=== PATIENT | female | born 1970 | race Caucasian/White ===

== ENCOUNTER 2017-09-18 22:46 | Observation (INO) ==
[2017-09-18] MEDS ORDERED: methylPREDNISolone 125 MG/2 ML VIAL IVP ONE (22:53)
[2017-09-18] MEDS ORDERED: Famotidine 20 MG/2 ML VIAL IVP ONE (22:53)
[2017-09-18] MEDS ORDERED: *HR* EPINEPHrine 1 MG/ML AMPUL IM ONE (22:53)
[2017-09-18] MEDS ORDERED: methylPREDNISolone 125 MG/2 ML VIAL ONE (22:53)
[2017-09-18] MEDS ORDERED: *HR* EPINEPHrine 1 MG/ML AMPUL ONE (22:53)
[2017-09-18] MEDS ORDERED: 0.9 % Sodium Chloride 1,000 ML IVC ONE (22:54)
[2017-09-18] MEDS ORDERED: Albuterol 2.5 MG/3 ML NEBULIZER IH ONE (23:01)
--- NOTE | 2017-09-18 23:12 | Emergency Department Note ---
Disposition Clinical Impression: Anaphylactic shock Allergic reaction to penicillin Qualifiers: Encounter type: initial encounter Qualified Code(s): T36.0X5A - Adverse effect of penicillins, initial encounter Disposition: Admitted As Inpatient Condition: Fair Time of Disposition: 00:11 Allergic Reaction HPI - General Chief complaint: ED Allergic Reaction Stated complaint: Allergic reaction Time Seen by Provider: 09/18/17 22:48 Source: patient, family Mode of arrival: EMS Limitations: no limitations Nursing Notes Reviewed: Yes Vital Signs Reviewed: Yes - History of Present Illness HPI Narrative: 47-year-old female presents with facial swelling, with syncope. Patient states that she is having a red rash all over, she took amoxicillin a few hours prior to arrival, the patient states that she took some Benadryl was still feeling flushed and she passed out. She came in by EMS, concerned that she is of an allergic reaction to amoxicillin. She does have a history of amoxicillin take it one time and she had some hives. She has never had anaphylaxis before and never had epinephrine. EMS administered oxygen around her sats were 83 with 84% . At this time patient reports shortness breath and body rash, she feels like her throat is closing up. Pt Subjective Complaint: allergic reaction Onset (ago): hour(s) Exposure: medication (Amox) Severity: severe Treatment prior to arrival: benadryl Previous Allergic Reaction History: none - Related Data Home Medications Medication Instructions Recorded Confirmed No Known Home Drugs 09/19/17 09/19/17 Allergies Allergy/AdvReac Type Severity Reaction Status Date / Time Penicillins Allergy Anaphylaxis Verified 09/18/17 23:03 All systems ED: reviewed and negative except as stated. Review of Systems: As Per HPI Constitutional: Denies: fever, chills Eyes: Denies: eye pain ENT ED: Denies: ear pain, congestion Cardiovascular: Reports: palpitations Respiratory: Reports: as per HPI, cough, dyspnea, wheezes Gastrointestinal: Denies: abdominal pain, nausea, vomiting Genitourinary: Denies: urgency Musculoskeletal: Denies: back pain Integumentary: Denies: rash Neurological: Denies: headache, weakness Psychiatric: Denies: anxiety Past Medical History - Past Medical History Attestation: Yes The following information was validated with the patient. Source: patient Medical history: Reports: no medical history - Social History Smoking Status: Current every day smoker Smokeless Tobacco Status: No Alcohol use: Reports: none Drug use: Reports: none Physical Exam Constitutional: Hypotension tachycardic female in moderate respiratory distress Eyes: PERRLA, sclera anicteric ENT & Mouth: Lips swelling upper and lower. MM dry Neck: normal inspection, neck is supple Resp: CTA bilaterally, no resp distress CV: Tachycardic, no m/g/r GI: normal inspection, soft, no guarding or rigidity Neuro: A&O3, CNII-XII grossly intact, RENEE Skin: Diffuse macular rash on extremities torso and abdomen. - General Limitations: no limitations General appearance: alert, in distress Course Course Narrative: 39-year-old female with anaphylactic reaction to amoxicillin, given IV fluids Solu-Medrol, IM epinephrine, Pepcid, Benadryl, albuterol, patient did respond to epinephrine and her blood pressure came up from 60/40 90/70 that went to 115/ 90, she is currently stable, but sure presents a severe risk for decompensation with amoxacillin. First-time anaphylactic reaction, will admit the patient to the hospitalist service - Reevaluation(s) Reevaluation #1: Patient with stable repeat vital signs patient's now weaned onto room air, 94%, patient has stable repeat blood pressure is 1:15 to 126 systolic, patient is not a repeat dose of epinephrine, given anaphylaxis with a blood pressure in the 60s over 40s, and unclear half-life for amoxicillin, plan will be for admission for the patient, and further observation. Elton Rossi accepting Time: 00:14 Vital Signs Temperature 97.5 F L 09/18/17 22:49 Pulse Rate 113 09/18/17 22:49 Respiratory Rate 16 09/18/17 22:49 Blood Pressure 84/55 09/18/17 22:49 O2 Sat by Pulse Oximetry 84 09/18/17 22:49 Temperature 98.5 F 09/19/17 04:14 Pulse Rate 84 09/19/17 04:14 Respiratory Rate 17 09/19/17 04:14 Blood Pressure 111/69 09/19/17 04:14 O2 Sat by Pulse Oximetry 96 09/19/17 04:14 Oxygen Delivery Oxygen Delivery Room Air Allergic Reaction - Differential Diagnosis Differential Diagnosis: Likely: anaphylaxis, allergic reaction, angioedema, adverse reaction to drug, viral enanthem - Medical Records Medical records reviewed: Yes I reviewed the patient's medical records. - Lab Data Lab results reviewed: Yes I reviewed the patient's lab results. Result diagrams: 09/19/17 01:10 09/19/17 01:10 Lab Results 09/18/17 09/18/17 09/18/17 Range/Units 23:06 23:06 23:06 WBC 12.4 H (4.3-11.1) K/mcL RBC 6.11 H (3.82-4.97) M/mcL Hgb 18.7 H (11.5-15.4) g/dL Hct 55.0 H (35.3-44.9) % MCV 90.0 (83.0-100.0) fL MCH 30.6 (28.0-33.3) pg MCHC 34.0 (31.6-35.5) g/dL RDW 13.7 (11.5-14.5) % Plt Count 322 (140-400) K/mcL MPV 9.5 (9.4-12.4) fL Immature Gran % 0.4 (0-4) % Seg Neutrophils % 45.2 % Lymphocytes % 48.8 % Monocytes % 2.9 % Eosinophils % 2.2 % Basophils % 0.5 % Neutrophils # 5.6 (1.6-8.9) K/mcL Lymphocytes # 6.1 H (0.6-4.6) K/mcL Monocytes # 0.4 (0.0-1.3) K/mcL Eosinophils # 0.3 (0.0-0.6) K/mcL Basophils # 0.1 (0.0-0.2) K/mcL VBG pH (7.32-7.42) pH Units VBG pCO2 (41-51) mmHg VBG pO2 (25-50) mmHg VBG HCO3 (21-27) mEq/L Sodium 139 (136-145) mEq/L Potassium 2.9 L (3.5-5.1) mEq/L Chloride 107 (98-107) mEq/L Carbon Dioxide 20 L (23-29) mEq/L BUN 11 (6-20) mg/dL Creatinine 0.90 (0.60-1.20) mg/dL Est GFR ( Amer) > 60 (> 60) Est GFR (Non-Af Amer) > 60 (> 60) BUN/Creatinine Ratio 12 (6-26) Glucose 194 H (70-105) mg/dL Calculated Osmolality 293 (280-300) Lactic Acid 3.7 H (0.5-2.2) mmol/L Calcium 8.6 (8.6-10.3) mg/dL Troponin I < 0.03 (< 0.04) ng/mL B-Natriuretic Peptide (Less than 100) pg/mL 09/18/17 09/18/17 Range/Units 23:06 23:23 WBC (4.3-11.1) K/mcL RBC (3.82-4.97) M/mcL Hgb (11.5-15.4) g/dL Hct (35.3-44.9) % MCV (83.0-100.0) fL MCH (28.0-33.3) pg MCHC (31.6-35.5) g/dL RDW (11.5-14.5) % Plt Count (140-400) K/mcL MPV (9.4-12.4) fL Immature Gran % (0-4) % Seg Neutrophils % % Lymphocytes % % Monocytes % % Eosinophils % % Basophils % % Neutrophils # (1.6-8.9) K/mcL Lymphocytes # (0.6-4.6) K/mcL Monocytes # (0.0-1.3) K/mcL Eosinophils # (0.0-0.6) K/mcL Basophils # (0.0-0.2) K/mcL VBG pH 7.30 L (7.32-7.42) pH Units VBG pCO2 44 (41-51) mmHg VBG pO2 61 H (25-50) mmHg VBG HCO3 22 (21-27) mEq/L Sodium (136-145) mEq/L Potassium (3.5-5.1) mEq/L Chloride (98-107) mEq/L Carbon Dioxide (23-29) mEq/L BUN (6-20) mg/dL Creatinine (0.60-1.20) mg/dL Est GFR ( Amer) (> 60) Est GFR (Non-Af Amer) (> 60) BUN/Creatinine Ratio (6-26) Glucose (70-105) mg/dL Calculated Osmolality (280-300) Lactic Acid (0.5-2.2) mmol/L Calcium (8.6-10.3) mg/dL Troponin I (< 0.04) ng/mL B-Natriuretic Peptide 14 (Less than 100) pg/mL - Radiology Data Radiology results reviewed: Yes I reviewed the patient's radiology results. Chest X-Ray 09/18/17 22:54 IMPRESSION: No acute process. D/ / Justin Brewer MD / Justin Brewer MD Interpreting Provider: Justin Brewer MD - EKG Data EKG attestation: Yes I reviewed and interpreted this EKG. EKG shows normal: sinus rhythm (70 bpm TX 131 QRS [address] segment elevations or depressions. ) Rate: normal Rhythm: NSR [place]/QRS: normal - Core Measures AMI Core Measures Followed: No Measure Exclusions: not indicated Attestation Statement - Attestation Attestation: I examined this patient and my medical decision-making was reviewed with the Resident Physician. I agree with the documented findings, disposition and treatment plan as described except to the extent set forth below. Patient presents with anaphylactic shock after starting a new antibiotic. She required epinephrine on arrival. Her vital signs subsequently normalized however due to the degree of her shock I would proceed with admission for observation overnight and prescribed epinephrine auto injector for home use should she have recurrence of symptomatology or have further anaphylaxis at home. I spent greater than 35 minutes of critical care time resuscitating this acutely ill patient suffering from anaphylactic shock. This was excluding billable procedures.
[2017-09-18 23:28] LABS: VBG HCO3 22 mEq/L (21-27); VBG PCO2 44 mmHg (41-51); VBG PO2 61 mmHg (25-50)
[2017-09-18 23:41] LABS: Basophils # 0.1 K/mcL (0.0-0.2); Basophils % 0.5 %; Eosinophils # 0.3 K/mcL (0.0-0.6); Eosinophils % 2.2 %; Hemoglobin 18.7 g/dL (11.5-15.4); Immature Granulocytes % 0.4 % (0-4); Lymphocytes # 6.1 K/mcL (0.6-4.6); Lymphocytes % 48.8 %; Mean Corpuscular Hemoglobin 30.6 pg (28.0-33.3); Mean Platelet Volume 9.5 fL (9.4-12.4); Monocytes # 0.4 K/mcL (0.0-1.3); Monocytes % 2.9 %; Neutrophils # 5.6 K/mcL (1.6-8.9); Platelet Count 322 K/mcL (140-400); Red Blood Count 6.11 M/mcL (3.82-4.97); Red Cell Distribution Width 13.7 % (11.5-14.5); Segmented Neutrophils % 45.2 %
[2017-09-19 00:01] LABS: BUN/Creatinine Ratio 12 (6-26); Blood Urea Nitrogen 11 mg/dL (6-20); Calcium 8.6 mg/dL (8.6-10.3); Carbon Dioxide 20 mEq/L (23-29); Chloride 107 mEq/L (98-107); Glucose 194 mg/dL (70-105); Osmolality,Calculated 293 (280-300); Potassium 2.9 mEq/L (3.5-5.1); Sodium 139 mEq/L (136-145); eGFR For African Americans > 60 (> 60); eGFR For Non-African Americans > 60 (> 60)
[2017-09-19 00:03] LABS: Troponin I < 0.03 ng/mL (< 0.04)
[2017-09-19] MEDS ORDERED: Acetaminophen 325 MG TABLET PO PRN (00:27)
[2017-09-19] MEDS ORDERED: Naloxone 0.4 MG/ML INJ IVP PRN (00:27)
[2017-09-19] MEDS ORDERED: Potassium Chloride 40 MEQ, Lidocaine 1% 2 ML in D5% in Water 500 ML IVPB ONE (00:29)
[2017-09-19] MEDS ORDERED: 0.9 % Sodium Chloride 1,000 ML IVC SCH (00:30)
--- NOTE | 2017-09-19 00:33 | Internal Med History&Physical ---
Date of Encounter: 09/19/17 Time of Encounter: 00:30 Internal Medicine - H&P: HPI Chief complaint: Allergic reaction Admitted From: Emergency Dept Plans for Post Hospital Care: Home History of present illness: Ms. Mckay is a 47 year old female who has no past medical history who presented to the ED after an allergic reaction to penicillin 45 minutes after taking it. The patient tells me that she actually took penicillin all her life with no issues up until the last 2 times that she is taken penicillins where she had hives to went away with Benadryl. Been having URI symptoms for the last few days and took one of her sons amoxicillin and 45 minutes later she started having shortness of breath, facial and lip swelling, hives, diaphoresis , tachypnea, and near syncope. She took oral Benadryl but that did not resolve her symptoms. They called EMS however due to worsening of her symptoms her son caregiver brought her to the ED where she was found hypoxic with sats of 84%. She was also hypotensive with systolic blood pressure in the 80s. She is tachycardic. She was given IV Solu-Medrol, IV Benadryl, epinephrine, IV Pepcid , and IV fluids. Symptoms completely resolved after that. She was able to be weaned off oxygen breath, evaluated her. Laboratory workup showed white count of 12.4 and hemoglobin of 18.7. She had potassium of 2.9. Lactic acid was 3.7. Troponins less than 0.03. Chest x-ray was clear. Denies any fever, chills, nausea, vomiting, chest pain, abdominal pain, diarrhea, constipation, urinary symptoms, or neurological symptoms. Past Med Surg Social Fam HX - Past Medical History Medical history: no medical history - Social History Smoking Status: Current every day smoker Smokeless Tobacco Status: No Alcohol use: none Drug use: none Internal Medicine - H&P: Meds No Known Home Drugs 09/19/17 [History] 3 Allergy/AdvReac Type Severity Reaction Status Date / Time Penicillins Allergy Anaphylaxis Verified 09/18/17 23:03 All Systems PM: A 10-system review of systems was performed and is negative for pertinent findings except as documented above in the HPI. Review of systems: All systems reviewed are negative except for as mentioned above - Constitutional Vitals: Temp Pulse Resp BP Pulse Ox 97.5 F L 69 18 118/70 98 09/18/17 22:49 09/19/17 00:15 09/19/17 00:15 09/19/17 00:15 09/19/17 00:15 Exam: GEN: NAD HEENT: AT, NC, No cyanosis, oral mucosa is moist, No JVD Lymphatics: No lymphadenoapthy Eyes: Extrocular muscles intact, anicteric CVS:RRR. S1, S2, No m/r/g RESP: CTAB ABD: Soft, NT, ND, +BS EXT: No edema, No rashes, 2+ DP NEURO: Nonfocal, CN II-XII intact, No focal motor or sensory deficits Psych: Cooperative, Not anxious or depressed Internal Med - H&P Results - Labs CBC & Chem 7: 09/18/17 23:06 09/18/17 23:06 - Assessment and plan (1) Anaphylactic shock Current Visit: Yes Status: Acute Assessment and plan: Penicillin has been added to the patient's allergy list. Patient is status post IV site medical, Benadryl, Pepcid, epinephrine. She is completely asymptomatic right now. No O2 needs. We will monitor. I have added oral Benadryl to be used when necessary. The patient can possibly be discharged in the morning. We will keep on telemetry. (2) Lactic acidosis Current Visit: Yes Status: Acute Assessment and plan: Given IV fluids in the ED. We will continue IV fluids and repeat lactic acid level. (3) Leukocytosis Current Visit: Yes Status: Acute Assessment and plan: Likely reactive. No signs of infection. Patient is afebrile. Possibly some component of dehydration as her hemoglobin is also elevated at 18.7. We will hydrate and check labs in the morning. No urinary symptoms. I did not order a urinalysis. Chest x-ray showed no acute findings. Qualifiers: Leukocytosis type: unspecified Qualified Code(s): D72.829 - Elevated white blood cell count, unspecified (4) Hypokalemia Current Visit: Yes Status: Acute Assessment and plan: We will give IV and oral potassium and check labs in the morning. (5) URI (upper respiratory infection) Current Visit: Yes Status: Acute Assessment and plan: Symptomatic treatment. Likely viral. I assured the patient that no antibiotics are needed for this. Qualifiers: URI type: unspecified viral URI Qualified Code(s): J06.9 - Acute upper respiratory infection, unspecified (6) DVT prophylaxis Current Visit: Yes Status: Acute Assessment and plan: SCDs - Time Spent With Patient Total time spent is greater than 50% in coordination of care (as documented) at patient's floor/unit and/or counseling patient:
[2017-09-19 01:24] LABS: Basophils % 0.2 %; Eosinophils # 0.1 K/mcL (0.0-0.6); Eosinophils % 0.4 %; Hematocrit 49.8 % (35.3-44.9); Immature Granulocytes % 0.6 % (0-4); Lymphocytes # 1.4 K/mcL (0.6-4.6); Lymphocytes % 7.3 %; Mean Corpuscular HGB Conc 33.5 g/dL (31.6-35.5); Mean Corpuscular Hemoglobin 30.5 pg (28.0-33.3); Mean Platelet Volume 9.2 fL (9.4-12.4); Monocytes # 0.8 K/mcL (0.0-1.3); Monocytes % 4.1 %; Platelet Count 252 K/mcL (140-400); Red Blood Count 5.47 M/mcL (3.82-4.97); Red Cell Distribution Width 13.6 % (11.5-14.5); Segmented Neutrophils % 87.4 %
[2017-09-19 01:26] LABS: Hemoglobin 16.7 g/dL (11.5-15.4)
[2017-09-19 01:46] LABS: BUN/Creatinine Ratio 14 (6-26); Blood Urea Nitrogen 11 mg/dL (6-20); Calcium 8.1 mg/dL (8.6-10.3); Carbon Dioxide 23 mEq/L (23-29); Chloride 109 mEq/L (98-107); Glucose 139 mg/dL (70-105); Magnesium 1.6 mg/dL (1.6-2.6); Osmolality,Calculated 290 (280-300); Potassium 3.3 mEq/L (3.5-5.1); Sodium 139 mEq/L (136-145); eGFR For African Americans > 60 (> 60); eGFR For Non-African Americans > 60 (> 60)
[2017-09-19 01:58] LABS: Thyroid Stimulating Hormone 2.938 mcIU/mL (0.340-5.600)
[2017-09-19] MEDS ORDERED: 0.9 % Sodium Chloride w KCl 20 MEQ/1,000 ML MLS IVC SCH (07:45)
--- NOTE | 2017-09-19 11:04 | Discharge Summary ---
- NOTES TO OUTPATIENT PROVIDER Notes to Outpatient Provider: Patient admitted with early anaphylactic reaction to penicillin after she took amoxicillin. Treated with Solu-Medrol and Benadryl with resolution of symptoms. Will be discharged today. Penicillin has now been added to her allergy list Date of Encounter: 09/19/17 Time of Encounter: 11:01 - Discharge Diagnosis (1) Anaphylactic shock Priority: Primary Status: Acute (2) Lactic acidosis Priority: Secondary Status: Acute (3) Leukocytosis Priority: Secondary Status: Acute Qualifiers: Leukocytosis type: unspecified Qualified Code(s): D72.829 - Elevated white blood cell count, unspecified (4) Hypokalemia Priority: Secondary Status: Acute (5) URI (upper respiratory infection) Priority: Secondary Status: Acute Qualifiers: URI type: unspecified viral URI Qualified Code(s): J06.9 - Acute upper respiratory infection, unspecified (6) DVT prophylaxis Priority: Secondary Status: Acute Hospital course: Ms. Mckay is a 47 year old female patient with no significant past medical history who was hospitalized here after presenting with an early anaphylactic- like reaction to penicillin. She began to have symptoms of allergy about 45 minutes after taking penicillin with shortness of breath, facial and lip swelling along with hives tachypnea and near-syncope. She was hypoxic on arrival here. She also had elevated lactic acid. She was treated with epinephrine, Solu-Medrol and Benadryl, Pepcid and IV fluids. Her symptoms have now mostly resolved. She is feeling much better now. She was taking amoxicillin for sinus pressure. She does take amoxicillin occasionally as outpatient for this. She had one episode of allergic reaction to amoxicillin prior to this episode. Penicillins have now been added to her allergy list. She is stable to be discharged home at this time. I am discharging her with a prescription for Benadryl and Pepcid to be used as needed and also prescription for epinephrine injection. Discharge discussed with: patient - Time Spent with Patient Total time spent providing and/or coordinating discharge services: Less than 30 minutes (25 min) - Discharge Medications Prescriptions: DiphenhydraMINE [Benadryl] 25 mg PO Q6HR PRN #20 capsule PRN Reason: Allergic Reaction EPINEPHrine [Auvi-Q] 0.3 mg IM ONCE PRN #1 auto.injct PRN Reason: Anaphylaxis Famotidine [Pepcid] 20 mg PO BID PRN #20 tablet PRN Reason: Allergic Reaction Home Medications: DiphenhydraMINE [Benadryl] 25 mg PO Q6HR PRN #20 capsule 09/19/17 [Rx] EPINEPHrine [Auvi-Q] 0.3 mg IM ONCE PRN #1 auto.injct 09/19/17 [Rx] Famotidine [Pepcid] 20 mg PO BID PRN #20 tablet 09/19/17 [Rx] Allergies/Adverse Reactions: 3 Allergy/AdvReac Type Severity Reaction Status Date / Time Penicillins Allergy Anaphylaxis Verified 09/18/17 23:03 Procaine [From Novocain] Allergy Swelling Verified 09/19/17 07:51 of Lip/Tongue/Throat Date of admission: 09/19/17 00:21 Primary care physician: Bill Lee Discharging clinician: Se Brand Anticipated date of discharge: 09/19/17 - Constitutional Vitals: Temp Pulse Resp BP Pulse Ox 98.6 F 84 16 110/67 99 09/19/17 09:00 09/19/17 09:00 09/19/17 09:00 09/19/17 09:00 09/19/17 09:00 General appearance: Present: cooperative, A&O X 3, answers questions appropriately - Respiratory Respiratory exam: Present: CTAB. Absent: accessory muscle use, rales, rhonchi, wheezes - Cardiovascular Cardiovascular exam: Present: RRR, +S1, +S2. Absent: diastolic murmur, gallop, rubs, systolic murmur - GI/Abdominal GI/Abdominal exam: Present: normal bowel sounds, soft, no peritoneal signs. Absent: distended, tenderness - Extremities Exam Extremities exam: Present: warm, radial pulses palpable and symmetrical. Absent : calf tenderness, cyanotic, pedal edema - Neurological Exam Neurological exam: Present: CN II-XII intact, oriented X3, no focal deficits. Absent: facial droop, speech deficit - Patient Status Disposition: Home, Self-Care Condition: Good Functional capacity at discharge: independent ambulation Overall status at discharge: patient is progressing back to baseline - Discharge Instructions Follow Up With: Bill Lee, [Primary Care Provider] - (in 1-2 weeks Patient has to make her own appointment per Dr. Kimble office) - Diet and Activity Activity: increase activity as tolerated Diet: advance to your usual diet
[2017-09-19 11:10] VITALS: BP 117/68
--- NOTE | 2017-09-19 19:50 | Electrocardiograph Report ---
[address] [address] Test Date: 2017-09-18 Pat Name: Stepan Mckay Department: 103 Room: 2N08 Gender: F Manager Vehicle: LEELA : 1970 Requested By: Say Raya Order Number: [id number] Reading MD: Marko Mims Measurements Intervals [place] Rate: 78 P: 69 [place]: 131 QRS: 47 QRSD: 90 T: 57 QT: 423 QTc: 456 Interpretive Statements SINUS RHYTHM BIATRIAL ENLARGEMENT Electronically Signed On 09-19-2017 19:49:13 EDT by Marko Mims
== END 2017-09-19 12:05 | disposition home or self-care (01) ==
LOC: 2NNU 22:46 → EMEROO 22:46 → 2NNU 09-19 00:36
PROVIDERS: ADMIT Internal Medicine; ATTEND Internal Medicine